=== PATIENT | male | born 1970 | race Caucasian/White ===

== ENCOUNTER 2017-08-16 07:49 | Outpatient (CLI) | payer OTHER ==
--- NOTE | 2017-08-16 15:49 | MRI Preliminary Report ---
Exam: MRI CERVICAL SPINE W/O IMPRESSION: 1. Mild degenerative disk and facet changes, minimally progressed compared to 2009. 2. Disk osteophyte complex at C5-C6 with right paracentral and foraminal protrusion, slightly increas ed, resulting in mild central canal and moderate right and mild left neural foramen stenosis. 3. Disk osteophyte complex at C6-C7 results in mild central canal stenosis and mild right and moderat e left neural foramen stenosis, minimally progressed. [facility] SITE ID: [id number]
--- NOTE | 2017-08-16 18:09 | MRI Report ---
EXAM: MRI CERVICAL SPINE WITHOUT CONTRAST EXAM DATE: 08/16/2017 08:30 AM. CLINICAL HISTORY: Chronic bilateral shoulder pain. COMPARISONS: MRI 12/28/2008. TECHNIQUE: Multiplanar, multisequence T1-weighted and fluid-sensitive sequences of the cervical spine without contrast. Other: None. FINDINGS: Neurologic Structures: The visualized posterior fossa structures are unremarkable. No signal abnormal ity in the visualized spinal cord. Alignment: Minimal convex right curvature in the mid cervical spine. No spondylolisthesis. Bone Marrow: No gross fractures or bone lesions. No marrow edema. Interspace Levels/Facets: C1-C2: Minimal degenerative change anteriorly. This is similar. C2-C3: Minimal disk osteophyte complex, asymmetric to the left. Minimal bilateral facet hypertrophy. Minimal left neural foramen stenosis. This is similar. C3-C4: Minimal disk osteophyte complex. Minimal bilateral facet hypertrophy. Minimal left neural fora men stenosis. This is similar. C4-C5: Minimal disk osteophyte complex. Minimal bilateral facet hypertrophy. Minimal bilateral neural foramen stenosis. This is similar. C5-C6: Small disk osteophyte complex, asymmetric to the right where there is a small paracentral and foraminal disk protrusion, slightly increased. Mild bilateral facet hypertrophy. Mild central canal s tenosis with mild flattening along the anterior right aspect of the cervical cord, slightly progresse d. Moderate right and mild left neural foramen stenosis, slightly progressed. C6-C7: Small disk osteophyte complex, asymmetric to the left where there is a small foraminal protrus ion. Minimal bilateral facet hypertrophy. Mild central canal stenosis. Mild right and moderate left n eural foramen stenosis. This is minimally progressed. C7-T1: Minimal disk osteophyte complex. Mild bilateral facet hypertrophy. No stenosis. This is simila r. Musculature: No edema or fatty atrophy. Other: The paravertebral and prevertebral soft tissues are unremarkable. IMPRESSION: 1. Mild degenerative disk and facet changes, minimally progressed compared to 2008. 2. Disk osteophyte complex at C5-C6 with right paracentral and foraminal protrusion, slightly increas ed, resulting in mild central canal and moderate right and mild left neural foramen stenosis. 3. Disk osteophyte complex at C6-C7 results in mild central canal stenosis and mild right and moderat e left neural foramen stenosis, minimally progressed. [facility] Referring Provider Line: [phone] SITE ID: [id number]
== END 2017-08-16 07:50 | disposition home or self-care (01) ==
LOC: DI 07:49
PROVIDERS: ATTEND Orthopaedic Surgery
DX: M47.892 Other spondylosis, cervical region (principal); M50.31 Other cervical disc degeneration, high cervical region; M50.222 Other cervical disc displacement at C5-C6 level
CPT/HCPCS: 72141

== ENCOUNTER 2017-09-11 08:58 | Outpatient (CLI) | payer OTHER ==
--- NOTE | 2017-09-11 16:36 | MRI Preliminary Report ---
Exam: MRI SHOULDER LT W/O IMPRESSION: 1. Mild supraspinatus tendinopathy with shallow partial-thickness articular surface tear at the centr al to posterior fibers. 2. Mild subscapularis tendinopathy. 3. Minimal infraspinatus tendinopathy. 4. Partial-thickness superior labral tear extending anterior to posterior (SLAP tear). Full-thickness component posteriorly where there is a paralabral cyst. 5. Mild acromioclavicular degenerative change. 6. Acromioclavicular osteophytes and anterior downsloping of the acromion may contribute to symptoms of impingement. [facility] MUSCULOSKELETAL RADIOLOGY SECTION SITE ID: [id number]
--- NOTE | 2017-09-11 19:32 | MRI Report ---
EXAM: LEFT SHOULDER MRI WITHOUT CONTRAST EXAM DATE: 09/11/2017 10:10 AM. CLINICAL HISTORY: Chronic left shoulder pain for years. No recent trauma. COMPARISON: Radiographs 07/28/2017. TECHNIQUE: Multiplanar, multisequence T1-weighted and fluid-sensitive sequences of the shoulder witho ut contrast. Other: None. FINDINGS: Acromioclavicular Region: The acromion is type I with mild anterior downsloping. Mild degenerative ch ankit at the joint with small inferiorly-directed osteophytes resulting in mass-effect on the supraspi natus myotendinous junction. The coracoacromial and coracoclavicular ligaments are intact. No subacro mial/subdeltoid bursal fluid. Glenohumeral Region: No subluxation. No effusion or loose bodies. Shallow partial-thickness cartilage loss at the central aspect of the joint. The glenohumeral ligaments and joint capsule are unremarkab le. Bone Marrow: No fracture or bone lesion. Labrum: Partial-thickness undersurface tear at the superior labrum extending anterior to posterior. S uperimposed full-thickness component of the tear of the posterior-superior aspect where there is a lo bulated 0.5 cm paralabral cyst. Musculature/Rotator Cuff: Mild supraspinatus tendinopathy with shallow articular surface tearing at t he anterior and central fibers. This involves a region measuring 1.7 cm in transverse dimension (anat nal images 14). This involves less than 50% of the tendon thickness. Possible subtle deep component v ersus artifact at the posterior aspect (coronal images 12). Minimal infraspinatus tendinopathy. Teres minor tendon is intact. Mild subscapularis tendinopathy. No muscle edema. Mild fatty atrophy in the teres minor muscle. This may be neurogenic. Biceps Tendon: The long head of the biceps tendon and biceps miguel are intact. Other: The subcutaneous tissues are unremarkable. Mildly prominent lymph nodes partially visualized i n the axilla measuring up to 0.9 cm in short axis dimension. These are nonspecific and may be reactiv e. IMPRESSION: 1. Mild supraspinatus tendinopathy with a shallow partial-thickness articular surface tear at the remy tral to posterior fibers. 2. Mild subscapularis tendinopathy. 3. Minimal infraspinatus tendinopathy. 4. Partial-thickness superior labral tear extending anterior to posterior (SLAP tear). Full-thickness component posteriorly where there is a paralabral cyst. 5. Mild acromioclavicular degenerative change. 6. Acromioclavicular osteophytes and anterior downsloping of the acromion may contribute to symptoms of impingement. [facility] MUSCULOSKELETAL RADIOLOGY SECTION Referring Provider Line: [phone] SITE ID: [id number]
== END 2017-09-11 08:59 | disposition home or self-care (01) ==
LOC: DI 08:58
PROVIDERS: ATTEND Orthopaedic Surgery
DX: M75.102 Unspecified rotator cuff tear or rupture of left shoulder, not specified as traumatic (principal); S43.432A Superior glenoid labrum lesion of left shoulder, initial encounter; M19.012 Primary osteoarthritis, left shoulder; M75.92 Shoulder lesion, unspecified, left shoulder

== ENCOUNTER 2020-07-24 14:21 | Outpatient (CLI) | payer OTHER ==
--- NOTE | 2020-07-24 15:04 | XRAY Report ---
PROCEDURE: Hip w/Pelvis 2-3V RT INDICATIONS: HIP PAIN, RT TECHNIQUE: AP pelvis with lateral view(s) of the right hip. COMPARISON: None. FINDINGS: Bones: No fractures or dislocations. Pelvic ring appears intact. No suspicious bony lesions. Soft tissues: The visualized bowel gas pattern is normal. No suspicious soft tissue calcifications. IMPRESSION: This is a normal study. Reviewed by: Gray Rdz MD on 07/24/2020 3:02 PM PST Approved by: Gray Rdz MD on 07/24/2020 3:02 PM PST Station ID: [id number]
== END 2020-07-24 14:22 | disposition home or self-care (01) ==
LOC: DI.N 14:21
PROVIDERS: ATTEND Internal Medicine
DX: M25.551 Pain in right hip (principal)

== ENCOUNTER 2020-08-28 13:36 | Emergency (ER) | payer OTHER ==
[2020-08-28 13:42] VITALS: BP 156/100
--- NOTE | 2020-08-28 14:12 | ED Physician Documentation ---
History of Present Illness - Stated complaint Stated Complaint: MALE - Chief complaint Chief Complaint: General - Additonal information Additional information: 50-year-old male presents the emergency department for evaluation of a hemorrho id. He reports that this episode began 3-4 days ago and has been exceedingly painful since. He is using Preparation H with lidocaine and taking sitz bath without relief. Pain persist through the day even when sleeping at night. He does have a history of previous hemorrhoids status post thrombectomy about 6 years ago. Review of Systems Constitutional: reports: Reviewed and negative Eyes: reports: Reviewed and negative Nose: reports: Reviewed and negative Throat: reports: Reviewed and negative Cardiac: reports: Reviewed and negative Respiratory: reports: Reviewed and negative GI: reports: Reviewed and negative : reports: Other (hemorrhoid) Skin: reports: Reviewed and negative Musculoskeletal: reports: Reviewed and negative Neurologic: reports: Reviewed and negative Psychiatric: reports: Reviewed and negative PD PAST MEDICAL HISTORY - Past Medical History Musculoskeletal: Chronic back pain - Past Surgical History Past Surgical History: Yes - Present Medications Home Medications: Ambulatory Orders Medication Instructions Recorded Confirmed Cyclobenzaprine [Flexeril] 5 mg PO QID 11/14/14 08/28/20 Oxycodone HCl/Acetaminophen 1 tab PO TID 11/14/14 08/28/20 [Percocet 5-325 mg Tablet] Zolpidem Tartrate [Ambien] 5 mg PO DAILY 11/14/14 08/28/20 - Allergies Allergies/Adverse Reactions: Allergies Allergy/AdvReac Type Severity Reaction Status Date / Time soy Allergy Hives Verified 08/28/20 13:38 Sulfa (Sulfonamide Allergy Rash Verified 08/28/20 13:38 Antibiotics) venom-honey bee Allergy Anaphylaxis Verified 08/28/20 13:38 [bee venom (honey bee)] - Social History Does the pt smoke?: No Smoking Status: Never smoker Does the pt drink ETOH?: No Does the pt have substance abuse?: No - Immunizations Immunizations are current?: Yes PD ED PE EXPANDED - General General: Alert, No acute distress - Rectal Rectal: Hemorrhoid (Large 1 x 1.25 cm non-thrombosed external hemorrhoid. Compressible in volume by about 75%) Results - Vitals Vitals: Vital Signs - 24 hr 08/28/20 13:40 Temperature 36.5 C Heart Rate 75 Respiratory 19 Rate Blood Pressure 156/100 H O2 Saturation 100 Oxygen O2 Source Room air PD MEDICAL DECISION MAKING - ED course Complexity details: d/w patient ED course: 50-year-old male presents the emergency department for evaluation of an external hemorrhoid that has been present for about 3-1/2 days. On exam he has a 1.5 cm hemorrhoid that is not yet thrombosed. I am able to compress it by about 75% in volume. I discussed with patient that clot extraction was not appropriate at this time as the risk of persistent bleeding following the thrombectomy is greater as it is not yet thrombosed. I advised reevaluation either in the emergency department or with his primary care provider in 24 to 48 hours. Patient is quite upset and frustrated. He left the emergency department without receiving discharge instructions. he reported that he was going to go to billing Departure - Departure Disposition: 01 Home, Self Care Clinical Impression: External hemorrhoid Comments: Tee your hemorrhoid is not yet clotted enough for us to remove the blood clot. I suspect that it may be in 24 to 48 hours more appropriate for thrombectomy. I recommend you continue the sitz baths as well as the lidocaine jelly's that you are using. In the long-term please follow-up with a colorectal surgeon but you may return to the emergency department in 24 to 48 hours for repeat evaluation.
[2020-08-28] MEDS ORDERED: BUFFERED LIDOCAINE 10 ML SYRINGE SUBQ STA (14:14)
== END 2020-08-28 14:40 | disposition home or self-care (01) ==
LOC: ED 13:36
DX: K64.4 Residual hemorrhoidal skin tags (principal)
CPT/HCPCS: 99281; 99283

== ENCOUNTER 2021-10-06 11:03 | Outpatient (CLI) | payer OTHER ==
[2021-10-06 17:38] LABS: BASOPHILS # (AUTO) 0.1 10^3/uL (0.0-0.1); BASOPHILS % (AUTO) 1.3 %; EOSINOPHILS # (AUTO) 0.1 10^3/uL (0.0-0.7); EOSINOPHILS % (AUTO) 1.9 %; HCT - HEMATOCRIT 48.2 % (42.0-52.0); HGB - HEMOGLOBIN 15.9 g/dL (14.0-18.0); LYMPHOCYTES # (AUTO) 1.4 10^3/uL (1.5-3.5); LYMPHOCYTES % (AUTO) 25.5 %; MEAN CORPUSCULAR HEMOGLOBIN 30.1 pg (27.0-31.0); MEAN CORPUSCULAR VOLUME 91.1 fL (80.0-94.0); MEAN PLATELET VOLUME 10.3 fL (7.4-11.4); MONOCYTES # (AUTO) 0.5 10^3/uL (0.0-1.0); MONOCYTES % (AUTO) 8.5 %; NEUTROPHILS # (AUTO) 3.3 10^3/uL (1.5-6.6); NEUTROPHILS % (AUTO) 62.6 %; PLT - PLATELET COUNT 263 10^3/uL (130-450); RED BLOOD COUNT 5.29 10^6/uL (4.70-6.10); RED CELL DISTRIBUTION WIDTH 12.6 % (12.0-15.0); WHITE BLOOD COUNT 5.3 x10^3/uL (4.8-10.8)
[2021-10-06 18:06] LABS: ALBUMIN 4.4 g/dL (3.2-5.5); ALBUMIN/GLOBULIN RATIO 1.4 (1.0-2.2); ALKALINE PHOSPHATASE 52 IU/L (42-121); ALT ALANINE AMINOTRANSFERASE 19 IU/L (10-60); AST ASPARTATE AMINOTRANSFERASE 18 IU/L (10-42); BILIRUBIN,TOTAL 0.8 mg/dL (0.2-1.0); BUN - BLOOD UREA NITROGEN 16 mg/dL (6-20); CALCIUM 9.5 mg/dL (8.5-10.3); CARBON DIOXIDE - CO2 28 mmol/L (21-32); CHLORIDE 101 mmol/L (101-111); CHOL/HDL RATIO 4.7 (<5.0); CHOLESTEROL 223 mg/dL; CREATININE 0.9 mg/dL (0.6-1.2); GFR - MDRD 89 (>89); GLUCOSE 99 mg/dL (70-100); HDL CHOLESTEROL 47 mg/dL; LDL CHOLESTEROL,CALCULATED 146 mg/dL; LDL/HDL RATIO 3.1 (<3.6); POTASSIUM 4.5 mmol/L (3.5-5.0); SODIUM 136 mmol/L (135-145); TOTAL PROTEIN 7.6 g/dL (6.7-8.2); TRIGLYCERIDES 152 mg/dL; VLDL CHOLESTEROL 30 mg/dL
== END 2021-10-06 11:04 | disposition home or self-care (01) ==
LOC: LAB.N 11:03
PROVIDERS: ATTEND Internal Medicine
DX: Z00.00 Encounter for general adult medical examination without abnormal findings (principal); Z12.5 Encounter for screening for malignant neoplasm of prostate
CPT/HCPCS: 36415; 80053; 80061; 83721; 84153; 85025

== ENCOUNTER 2022-09-15 08:00 | Emergency (ER) | payer OTHER ==
[2022-09-15 08:27] LABS: BASOPHILS # (AUTO) 0.1 10^3/uL (0.0-0.1); BASOPHILS % (AUTO) 1.2 %; EOSINOPHILS # (AUTO) 0.1 10^3/uL (0.0-0.7); EOSINOPHILS % (AUTO) 0.8 %; HCT - HEMATOCRIT 46.2 % (42.0-52.0); HGB - HEMOGLOBIN 15.2 g/dL (14.0-18.0); LYMPHOCYTES # (AUTO) 1.7 10^3/uL (1.5-3.5); MEAN CORPUSCULAR HEMOGLOBIN 29.2 pg (27.0-31.0); MEAN CORPUSCULAR HGB CONC 32.9 g/dL (32.0-36.0); MEAN CORPUSCULAR VOLUME 88.7 fL (80.0-94.0); MEAN PLATELET VOLUME 9.4 fL (7.4-11.4); MONOCYTES # (AUTO) 0.6 10^3/uL (0.0-1.0); MONOCYTES % (AUTO) 9.6 %; NEUTROPHILS # (AUTO) 3.6 10^3/uL (1.5-6.6); NEUTROPHILS % (AUTO) 60.1 %; PLT - PLATELET COUNT 326 10^3/uL (130-450); RED BLOOD COUNT 5.21 10^6/uL (4.70-6.10); RED CELL DISTRIBUTION WIDTH 12.6 % (12.0-15.0)
--- NOTE | 2022-09-15 08:39 | XRAY Report ---
PROCEDURE: Chest 1 View X-Ray INDICATIONS: Chest Pain TECHNIQUE: One view of the chest was acquired. COMPARISON: None. FINDINGS: Surgical changes and devices: None. Lungs and pleura: No pleural effusions or pneumothorax. Lungs are clear. Mediastinum: Mediastinal contours appear normal. Heart size is normal. Bones and chest wall: No suspicious bony lesions. Overlying soft tissues appear unremarkable. IMPRESSION: No acute cardiopulmonary pathology. Reviewed by: Aneudy Turner MD on 09/15/2022 8:38 AM [facility] Approved by: Aneudy Turner MD on 09/15/2022 8:38 AM [facility] Station ID: [id number]
[2022-09-15 08:44] LABS: ALBUMIN 4.3 g/dL (3.2-5.5); ALBUMIN/GLOBULIN RATIO 1.3 (1.0-2.2); BILIRUBIN,TOTAL 0.8 mg/dL (0.2-1.0); CALCIUM 9.5 mg/dL (8.5-10.3); CREATININE 0.8 mg/dL (0.6-1.2); POTASSIUM 3.9 mmol/L (3.5-5.0); TOTAL PROTEIN 7.7 g/dL (6.7-8.2)
--- NOTE | 2022-09-15 10:45 | ED Physician Documentation ---
PD HPI CHEST PAIN - Stated complaint Stated Complaint: CHEST TIGHTNESS - Chief complaint Chief Complaint: Cardiac - History obtained from History obtained from: Patient - Additional information Additional information: The pt comes to the ED with CC of chest pain episode about 1 hour ago at work. He states he was not exerting himself, and was just going about light activity, when he suddenly developed a pain in his L upper chest, with numbness shooting down his L arm. He states he doubled over because of the intensity of the pain, which lasted about 2 minutes, and then resolved. The pt states he has had no symptoms since. No associated sx, such as dyspnea, nausea, sweating, or lightheadedness. No h/o these sx before. Pt states he exercises regularly and has no medical problems, other than some orthopedic issues. He has not smoked in decades. PD PAST MEDICAL HISTORY - Past Medical History Past Medical History: Yes Cardiovascular: None Respiratory: None Neuro: None Endocrine/Autoimmune: None GI: None : None HEENT: None Psych: Post traumatic stress disorder Musculoskeletal: Osteoarthritis, Chronic back pain, Other Derm: None - Past Surgical History Past Surgical History: Yes General: Colonoscopy - Present Medications Home Medications: Ambulatory Orders Medication Instructions Recorded Confirmed Oxycodone HCl/Acetaminophen 1 tab PO TID 11/14/14 09/15/22 [Percocet 5-325 mg Tablet] Zolpidem Tartrate [Ambien] 10 mg PO HS 09/15/22 09/15/22 - Allergies Allergies/Adverse Reactions: Allergies Allergy/AdvReac Type Severity Reaction Status Date / Time soy Allergy Hives Verified 09/15/22 08:03 Sulfa (Sulfonamide Allergy Rash Verified 09/15/22 08:03 Antibiotics) venom-honey bee Allergy Anaphylaxis Verified 09/15/22 08:03 [bee venom (honey bee)] - Social History Does the pt smoke?: No Smoking Status: Light tobacco smoker Does the pt drink ETOH?: No Does the pt have substance abuse?: Yes Substance Use and Type: CBD oil / Products - Immunizations Immunizations are current?: Yes PD ED PE NORMAL - Vitals Vital signs reviewed: Yes - General General: Alert and oriented X 3, No acute distress, Well developed/nourished - HEENT HEENT: Atraumatic, PERRL, EOMI, Moist mucous membranes - Neck Neck: Supple, no meningeal sign - Cardiac Cardiac: RRR, No murmur - Respiratory Respiratory: No respiratory distress, Clear bilaterally - Abdomen Abdomen: Soft, Non tender, Non distended - Derm Derm: Normal color, Warm and dry, No rash - Extremities Extremities: No deformity, No edema - Neuro Neuro: Alert and oriented X 3 - Psych Psych: Normal mood, Normal affect Results - Vitals Vitals: Oxygen O2 Source Room air - EKG (time done) 0809 Rate: Rate (enter#) (64) Rhythm: NSR [place]: Normal Intervals: RBBB (partial) QRS: Normal Ischemia: ST elevation c/w repol Compare to prior EKG: Old EKG unavailable Computer interpretation: Agree with computer - Labs Labs: Laboratory Tests 09/15/22 09/15/22 09/15/22 08:19 08:19 08:19 WBC 6.0 RBC 5.21 Hgb 15.2 Hct 46.2 MCV 88.7 MCH 29.2 MCHC 32.9 RDW 12.6 Plt Count 326 MPV 9.4 Neut # (Auto) 3.6 Lymph # (Auto) 1.7 [place] # (Auto) 0.6 Eos # (Auto) 0.1 Baso # (Auto) 0.1 Absolute Nucleated RBC 0.00 Nucleated RBC % 0.0 Sodium 137 Potassium 3.9 Chloride 103 Carbon Dioxide 26 Anion Gap 8.0 BUN 15 Creatinine 0.8 Estimated GFR (MDRD) 102 Glucose 105 H Calcium 9.5 Total Bilirubin 0.8 AST 16 ALT 16 Alkaline Phosphatase 63 Troponin I High Sens 4.5 Total Protein 7.7 Albumin 4.3 Globulin 3.4 Albumin/Globulin Ratio 1.3 Lipase 52 H 09/15/22 10:05 WBC RBC Hgb Hct MCV MCH MCHC RDW Plt Count MPV Neut # (Auto) Lymph # (Auto) [place] # (Auto) Eos # (Auto) Baso # (Auto) Absolute Nucleated RBC Nucleated RBC % Sodium Potassium Chloride Carbon Dioxide Anion Gap BUN Creatinine Estimated GFR (MDRD) Glucose Calcium Total Bilirubin AST ALT Alkaline Phosphatase Troponin I High Sens 4.4 Total Protein Albumin Globulin Albumin/Globulin Ratio Lipase PD Medical Decision Making - ED course Complexity details: reviewed results, re-evaluated patient, considered differential, d/w patient ED course: The pt was worked up with CBC, ER abdominal panel, initial troponin, EKG, and CXR, all of which were ordered and reviewed by me, and unremarkable, including negative trop. I felt the pt should have a repeat troponin at 2 hours, and this was done and negative. I d/w the pt that his work-up today is negative, and his short-lived pain is a bit atypical of cardiac CP. His risk factors overall are low, other than age, but I have d/w pt that he will need to f/u with his PCP as soon as possible for a stress test, to further evaluated for potential CAD. The pt states he will make an appointment. We have discussed the usual indications for return. Departure - Departure Disposition: Home, Self Care Clinical Impression: Chest pain Qualifiers: Chest pain type: unspecified Qualified Code(s): R07.9 - Chest pain, unspecified Condition: Stable Instructions: ED Chest Pain Atypical Unkn Cause Comments: Your labs, including 2 sets of cardiac enzymes, EKG, and chest x-ray all look good. There is no evidence of an emergent or serious cause of the pain today. However, given the nature of what you experienced, it would be a good idea for you to follow-up with your primary doctor and talk about having a stress test done, just to close the loop on any possibility of underlying and subclinical coronary artery disease. Please call to make the next available appointment. If you develop severe and unremitting chest pain shortness of breath, please return to the emergency department immediately. Discharge Date/Time: 09/15/22 11:08
[2022-09-15 11:07] VITALS: BP 146/102
== END 2022-09-15 11:08 | disposition home or self-care (01) ==
LOC: ED 08:00
DX: R07.9 Chest pain, unspecified (principal); Z87.891 Personal history of nicotine dependence
CPT/HCPCS: 36415; 80053; 83690; 84484; 85025; 93005; 99284